=== PATIENT | male | born 1960 | race Two or more races ===

== ENCOUNTER 2023-12-07 10:37 | Inpatient (IN) | payer OTHER ==
[2023-12-07 11:09] VITALS: BMI 29.0
[2023-12-07] MEDS ORDERED: ACETAMINOPHEN 325 MG TABLET (FP) PO PRN (12:03)
[2023-12-07] MEDS ORDERED: P-EPHED 60MG/TRIPROLIDI 2.5MG TABLET PO PRN (12:03)
[2023-12-07] MEDS ORDERED: NALOXONE HCL 0.4 MG/ML VIAL IM PRN (12:03)
[2023-12-07] MEDS ORDERED: MAGNESIUM HYDROX 2400MG/30ML ORAL SUSPENSION 30 ML CUP PO PRN (12:03)
[2023-12-07] MEDS ORDERED: guaiFENesin 600 MG TABLET.ER (FP) PO PRN (12:03)
[2023-12-07] MEDS ORDERED: NICOTINE POLACRILEX 2 MG LOZENGE BC PRN (12:03)
[2023-12-07] MEDS ORDERED: MAG HYDROX/AL HYDROX/SIMETH 30 ML UNIT-DOSE CUP PO PRN (12:03)
[2023-12-07] MEDS ORDERED: BENZONATATE 200 MG CAPSULE PO PRN (12:03)
[2023-12-07] MEDS ORDERED: LOPERAMIDE HCL 2 MG CAPSULE PO PRN (12:03)
[2023-12-07] MEDS ORDERED: NICOTINE POLACRILEX 2 MG GUM BUC PRN (12:03)
[2023-12-07] MEDS ORDERED: IBUPROFEN 600 MG TABLET (FP) PO PRN (12:03)
[2023-12-07] MEDS ORDERED: NALOXONE (NARCAN) HCL 4 MG/0.1 ML SPRAY NS PRN (12:03)
[2023-12-07] MEDS ORDERED: POLYETHYLENE GLYCOL (HEALTHYLAX) 3350 17 GM PACKET PO PRN (12:03)
[2023-12-07] MEDS ORDERED: BENZOCAINE/MENTHOL (CHLORASEPTIC ) LOZENGE MM PRN (12:03)
[2023-12-07] MEDS ORDERED: IBUPROFEN 400 MG TABLET (FP) PO PRN (12:03)
[2023-12-07] MEDS ORDERED: TUBERCULIN PPD 5 TU/0.1ML VIAL ID ONE (17:53)
[2023-12-07] MEDS: TUBERCULIN PPD 5 TU/0.1ML SYRINGE (IN PATIENT USE ONLY) ID ONE (17:54)
[2023-12-07] MEDS: MELATONIN 5 MG TABLETS PO SCH (22:18)
[2023-12-07] MEDS: THIAMINE 100 MG TABLET PO SCH (22:19)
[2023-12-08 09:27] LABS: HEMATOCRIT 39.3 % (35.4-49); HEMOGLOBIN 13.6 GM/dL (11.7-16.9); MCH 33.9 pg (25.7-33.7); MCHC 34.6 g/dl (32.0-35.9); MEAN PLT VOLUME 8.4 fl (7.5-11.1); PLATELET COUNT 174 10^3/uL (134-434); RBC 4.01 M/mm3 (4.00-5.60); RDW 13.6 % (11.9-15.9); WHITE BLOOD COUNT 6.8 K/mm3 (4.0-10.0)
[2023-12-08 09:38] LABS: POTASSIUM 4.2 mmol/L (3.5-5.1)
[2023-12-08 09:56] LABS: ALBUMIN 3.3 g/dl (3.4-5.0); CALCIUM 9.1 mg/dL (8.5-10.1)
[2023-12-08 09:57] LABS: BLOOD UREA NITROGEN 10.2 mg/dL (7-18)
[2023-12-08 10:00] LABS: CREATININE 0.9 mg/dL (0.55-1.3)
[2023-12-08 10:01] LABS: BILIRUBIN,TOTAL 0.5 mg/dL (0.2-1); TOT PROT 6.1 g/dl (6.4-8.2)
[2023-12-08] MEDS: PRENATAL VITAMINS W/ FOLIC ACID TABLET (FP) PO SCH (10:06)
[2023-12-08] MEDS: FLUoxetine HCL 10 MG CAPSULE PO SCH (12:48)
[2023-12-08 14:07] LABS: PH,URINE 8.5 (5.0-8.0); URINE APPEARANCE TURBID; URINE BILIRUBIN NEGATIVE (NEGATIVE); URINE COLOR YELLOW; URINE GLUCOSE (UA) NEGATIVE (NEGATIVE); URINE KETONE NEGATIVE (NEGATIVE); URINE LEUK ESTERASE NEGATIVE (NEGATIVE); URINE NITRITE NEGATIVE (NEGATIVE); URINE PROTEIN NEGATIVE (NEGATIVE); URINE UROBILINOGEN 0.2 mg/dL (0.2-1.0)
[2023-12-10] MEDS: BUPRENORPHINE/NALOXONE 2 MG/0.5 MG FILM PACKET SL SCH (09:52)
[2023-12-11] MEDS: BUPRENORPHINE/NALOXONE 4 MG/1 MG FILM PACKET SL SCH (17:55)
[2023-12-12 22:27] VITALS: RESP 16; TEMP 97.9
[2023-12-13 06:43] VITALS: BP 136/83; PULSE 77
== END 2023-12-13 09:25 | disposition left against medical advice (07) | DRG 770 ==
LOC: YASAS 10:37 → Y3E 13:11
PROVIDERS: ADMIT Allergy & Immunology; ATTEND Allergy & Immunology
PROC: HZ42ZZZ Group Counseling for Substance Abuse Treatment, Cognitive-Behavioral (ICD-10-PCS; principal; 2023-12-07)
DX: F11.20 Opioid dependence, uncomplicated (principal); F17.210 Nicotine dependence, cigarettes, uncomplicated; F31.9 Bipolar disorder, unspecified; I10 Essential (primary) hypertension; E78.5 Hyperlipidemia, unspecified; Z56.0 Unemployment, unspecified
CPT/HCPCS: 36415; 80053; 80305; 80307; 81003; 85027; 86780; 87811; 93005; 93010

== ENCOUNTER 2024-02-02 17:39 | Inpatient (IN) | payer OTHER ==
[2024-02-02 18:58] VITALS: BMI 29.0
[2024-02-02] MEDS ORDERED: ATORVASTATIN CA 40 MG TABLET (FP) PO SCH (22:00)
[2024-02-02] MEDS ORDERED: guaiFENesin 600 MG TABLET.ER (FP) PO PRN (22:06)
[2024-02-02] MEDS ORDERED: BENZONATATE 200 MG CAPSULE PO PRN (22:06)
[2024-02-02] MEDS ORDERED: IBUPROFEN 400 MG TABLET (FP) PO PRN (22:06)
[2024-02-02] MEDS ORDERED: NICOTINE POLACRILEX 2 MG LOZENGE BC PRN (22:06)
[2024-02-02] MEDS ORDERED: MAG HYDROX/AL HYDROX/SIMETH 30 ML UNIT-DOSE CUP PO PRN (22:06)
[2024-02-02] MEDS ORDERED: ACETAMINOPHEN 325 MG TABLET (FP) PO PRN (22:06)
[2024-02-02] MEDS ORDERED: BENZOCAINE/MENTHOL (CHLORASEPTIC ) LOZENGE MM PRN (22:06)
[2024-02-02] MEDS ORDERED: MAGNESIUM HYDROX 2400MG/30ML ORAL SUSPENSION 30 ML CUP PO PRN (22:06)
[2024-02-02] MEDS ORDERED: NICOTINE POLACRILEX 2 MG GUM BUC PRN (22:06)
[2024-02-02] MEDS ORDERED: POLYETHYLENE GLYCOL (HEALTHYLAX) 3350 17 GM PACKET PO PRN (22:06)
[2024-02-02] MEDS ORDERED: LOPERAMIDE HCL 2 MG CAPSULE PO PRN (22:06)
[2024-02-02] MEDS: MELATONIN 5 MG TABLETS PO SCH (23:00)
[2024-02-02] MEDS ORDERED: MELATONIN 5 MG TABLETS ONE (23:10)
[2024-02-02] MEDS: ATORVASTATIN CA 40 MG TABLET (FP) PO SCH (23:30)
[2024-02-03 02:24] LABS: PH,URINE 7.5 (5.0-8.0); URINE APPEARANCE CLEAR; URINE BILIRUBIN NEGATIVE (NEGATIVE); URINE COLOR YELLOW; URINE GLUCOSE (UA) NEGATIVE (NEGATIVE); URINE KETONE NEGATIVE (NEGATIVE); URINE LEUK ESTERASE NEGATIVE (NEGATIVE); URINE NITRITE NEGATIVE (NEGATIVE); URINE PROTEIN NEGATIVE (NEGATIVE); URINE UROBILINOGEN 0.2 mg/dL (0.2-1.0)
[2024-02-03] MEDS ORDERED: methaDONE HCL 10 MG TABLET PO SCH (08:45)
[2024-02-03] MEDS: PRENATAL VITAMINS W/ FOLIC ACID TABLET (FP) PO SCH (10:54)
[2024-02-03] MEDS: NIFEdipine E.R. 30 MG TABLET PO SCH (10:54)
[2024-02-03 12:11] LABS: HEMOGLOBIN 13.9 GM/dL (11.7-16.9); MCH 33.4 pg (25.7-33.7); MCHC 33.1 g/dl (32.0-35.9); MEAN CELL VOLUME 100.9 fl (80-96); MEAN PLT VOLUME 8.1 fl (7.5-11.1); PLATELET COUNT 201 10^3/uL (134-434); RBC 4.16 M/mm3 (4.00-5.60); RDW 13.7 % (11.9-15.9)
[2024-02-03] MEDS: ARIPiprazole 10 MG TABLET PO SCH (12:12)
[2024-02-03] MEDS: FLUoxetine HCL 10 MG CAPSULE PO SCH (12:12)
[2024-02-03 12:31] LABS: POTASSIUM 4.2 mmol/L (3.5-5.1)
[2024-02-03 12:34] LABS: CALCIUM 9.2 mg/dL (8.5-10.1)
[2024-02-03 12:35] LABS: ALBUMIN 3.5 g/dl (3.4-5.0); BLOOD UREA NITROGEN 10.1 mg/dL (7-18)
[2024-02-03 12:39] LABS: BILIRUBIN,TOTAL 0.5 mg/dL (0.2-1); TOT PROT 6.8 g/dl (6.4-8.2)
[2024-02-03] MEDS: THIAMINE 100 MG TABLET PO SCH (21:19)
[2024-02-03] MEDS: traZODone HCL 50 MG TABLET (FP) PO SCH (21:19)
[2024-02-05] MEDS ORDERED: NIFEdipine E.R. 30 MG TABLET PO SCH (10:00)
[2024-02-05] MEDS: NIFEdipine E.R 60 MG TABLET PO SCH (10:19)
[2024-02-05] MEDS ORDERED: NALOXONE (NYS OPIOID OVERDOSE PROGRAM) 4 MG/0.1 ML SPRAY NS PRN ×2 (13:00→14:48)
[2024-02-08] MEDS ORDERED: ONDANSETRON *ODT* 4 MG TABLET SL PRN (15:56)
[2024-02-08] MEDS ORDERED: BISMUTH SUBSALICYLATE 524 MG/30 ML PO PRN (15:56)
[2024-02-08] MEDS ORDERED: DICYCLOMINE HCL 10 MG CAPSULE PO PRN (15:56)
[2024-02-08] MEDS ORDERED: BENZONATATE 200 MG CAPSULE PO PRN (15:56)
[2024-02-08] MEDS ORDERED: IBUPROFEN 600 MG TABLET (FP) PO PRN (15:56)
[2024-02-08] MEDS ORDERED: guaiFENesin 600 MG TABLET.ER (FP) PO PRN (15:56)
[2024-02-09] MEDS: FUROSEMIDE 20 MG TABLET (FP) PO SCH (12:15)
[2024-02-09] MEDS: hydrOXYzine PAMOATE 25 MG CAPSULE (FP) PO PRN (21:30)
[2024-02-09] MEDS: METOPROLOL TARTRATE 25 MG TABLET (FP) PO ONE (22:35)
[2024-02-09] MEDS: METHOCARBAMOL 500 MG TABLET PO PRN (22:57)
[2024-02-15 06:15] VITALS: TEMP 97.3
[2024-02-16 06:24] VITALS: PULSE 90; RESP 16
[2024-02-16 07:32] VITALS: BP 138/75
[2024-02-16] MEDS: NALOXONE (NYS OPIOID OVERDOSE PROGRAM) 4 MG/0.1 ML SPRAY NS ONE (09:30)
== END 2024-02-16 09:32 | disposition home or self-care (01) | DRG 772 ==
LOC: YASAS 17:39 → Y3NR 22:45 → Y3W 02-03 09:55
PROVIDERS: ADMIT Allergy & Immunology; ATTEND Psychiatry & Neurology Pain Medicine
PROC: HZ42ZZZ Group Counseling for Substance Abuse Treatment, Cognitive-Behavioral (ICD-10-PCS; principal; 2024-02-11)
DX: F11.20 Opioid dependence, uncomplicated (principal); F12.20 Cannabis dependence, uncomplicated; F17.210 Nicotine dependence, cigarettes, uncomplicated; F19.282 Other psychoactive substance dependence with psychoactive substance-induced sleep disorder; F32.A Depression, unspecified; E78.6 Lipoprotein deficiency; I10 Essential (primary) hypertension; R60.0 Localized edema
CPT/HCPCS: 36415; 80053; 80305; 80307; 81003; 82962; 85027; 87811; 93005; 93010